=== PATIENT | female | born 1985 | race Caucasian/White ===

== ENCOUNTER 2021-03-30 08:38 | Outpatient (CLI) | payer BC ==
[2021-03-30 10:15] LABS: Hemoglobin 11.9 g/dL (12.0-15.5); Mean Corpuscular HGB CONC 31.9 g/dL (32.0-36.0); Mean Corpuscular Hemoglobin 28.5 pg (27.0-33.0); Mean Corpuscular Volume 89.4 fl (81.6-98.3); Mean Platelet Volume 9.5 fl (7.4-10.4); Platelet Count 228 10x3/uL (150-450); RBC Distribution Width 13.2 % (11.5-14.5); Red Blood Cell (RBC) Count 4.17 10x6/uL (3.90-5.03); White Blood Cell (WBC) Count 4.4 10x3/uL (3.5-10.5)
[2021-03-30 10:25] LABS: BHCG - Serum Negative (NEGATIVE); Pregs Control Background? CLEAR/WHITE (CLR/WHITE); Pregs Control Bar Appear? YES (CONTROL BAR)
[2021-03-30 23:16] LABS: SARS-CoV-2 PCR by NAA Not Detected (NotDetected)
== END 2021-03-30 08:39 | disposition home or self-care (01) ==
LOC: CSHLAB 08:38
PROVIDERS: ATTEND Obstetrics & Gynecology
DX: Z01.812 Encounter for preprocedural laboratory examination (principal); Z20.822 Contact with and (suspected) exposure to COVID-19; R10.2 Pelvic and perineal pain; G89.29 Other chronic pain; N94.10 Unspecified dyspareunia
CPT/HCPCS: 84703; 85027; U0003; U0005

== ENCOUNTER 2021-04-04 05:18 | Day surgery (SDC) | payer BC ==
[2021-04-02 15:06] VITALS: BMI 25.4
[2021-04-04] MEDS ORDERED: Gabapentin 300 MG CAP ONE (06:11)
[2021-04-04] MEDS ORDERED: Famotidine/PF 20 mg/2ml Vial ONE (06:12)
[2021-04-04] MEDS ORDERED: CeleCOXIB 100 MG CAP ONE (06:12)
[2021-04-04] MEDS ORDERED: Lidocaine 1% MPF 2 ML VIAL ONE (06:12)
[2021-04-04] MEDS ORDERED: Bupivacaine PF 0.5% 30 ML VIAL ONE (06:39)
[2021-04-04] MEDS ORDERED: EPINEPHrine 1 MG/ML AMP ONE (06:39)
[2021-04-04] MEDS ORDERED: Scopolamine 1.5 mg/72 hour Patch ONE (07:01)
[2021-04-04] MEDS ORDERED: Midazolam HCl 2 mg/2 ml Vial ONE ×2 (07:01→07:04)
[2021-04-04] MEDS ORDERED: PROPOFOL 20 ML ONE ×2 (07:03→08:29)
[2021-04-04] MEDS ORDERED: Fentanyl 250 MCG/5 ML VIAL ONE (07:03)
[2021-04-04] MEDS ORDERED: Glycopyrrolate 0.2 MG/ML 5 ML SYRINGE ONE (07:04)
[2021-04-04] MEDS ORDERED: Lidocaine 1% PF 5 ML VIAL ONE (07:04)
[2021-04-04] MEDS ORDERED: Ketorolac Tromethamine 30 MG/ML VIAL ONE (07:04)
[2021-04-04] MEDS ORDERED: Rocuronium Bromide 10 MG/ML (10ML VIAL) ONE (07:04)
[2021-04-04] MEDS ORDERED: Ondansetron PF 4 MG/2 ML Vial ONE ×2 (07:04→10:01)
[2021-04-04] MEDS ORDERED: Estradiol 0.1mg/24 Hour Patch (Weekly) TD SCH (09:15)
[2021-04-04] MEDS ORDERED: HYDROmorphone 0.5 MG/0.5 ML SYRINGE ONE (09:52)
[2021-04-04] MEDS ORDERED: Promethazine HCl 25 MG/ML VIAL ONE (10:02)
[2021-04-04] MEDS ORDERED: Estradiol 0.05mg/24 Hour Patch (Weekly) ONE (10:22)
== END 2021-04-04 12:10 | disposition home or self-care (01) ==
LOC: CSHSDC 05:18
PROVIDERS: ATTEND Obstetrics & Gynecology
PROC: 0UT74ZZ Resection of Bilateral Fallopian Tubes, Percutaneous Endoscopic Approach (ICD-10-PCS; principal; 2021-04-04)
PROC: 0UT94ZZ Resection of Uterus, Percutaneous Endoscopic Approach (ICD-10-PCS; principal; 2021-04-04)
PROC: 0UT24ZZ Resection of Bilateral Ovaries, Percutaneous Endoscopic Approach (ICD-10-PCS; principal; 2021-04-04)
DX: N72 Inflammatory disease of cervix uteri (principal); N87.9 Dysplasia of cervix uteri, unspecified; N83.01 Follicular cyst of right ovary; N83.12 Corpus luteum cyst of left ovary; K66.0 Peritoneal adhesions (postprocedural) (postinfection); N80.0 Endometriosis of uterus; G89.29 Other chronic pain; R10.2 Pelvic and perineal pain; N94.6 Dysmenorrhea, unspecified; N92.0 Excessive and frequent menstruation with regular cycle; F17.200 Nicotine dependence, unspecified, uncomplicated; Z79.899 Other long term (current) drug therapy; Z88.0 Allergy status to penicillin; Z88.5 Allergy status to narcotic agent; Z98.890 Other specified postprocedural states
CPT/HCPCS: 36415; 86850; 86900; 86901; 88307; J0171; J0690; J1170; J1885; J2250; J2405; J2550; J2704; J3010; S0020; S0028

== ENCOUNTER 2021-04-12 12:05 | Inpatient (IN) | payer BC ==
[2021-04-12] MEDS ORDERED: Ondansetron PF 4 MG/2 ML Vial ONE (13:01)
[2021-04-12] MEDS ORDERED: Ketorolac Tromethamine 30 MG/ML VIAL ONE (13:01)
[2021-04-12 13:14] LABS: Bilirubin Neg (Negative); Blood, Urine 25 (Negative); Clarity Slightly Cloudy (Clear); Glucose, Urine (Dipstick) Normal (Negative); Ketone, Urine 5 mg/dL (Negative); Leukocyte 100 (Negative); Nitrite Negative (Negative); Protein, Urine (Dipstick) 15 mg/dl (Neg-Trace); Specific Gravity, Urine 1.025 (1.002-1.036); Urobilinogen Normal mg/dL (Less than 2)
[2021-04-12 13:19] LABS: #Eosinphils 0.2 10x3/uL (0.0-0.5); #Monocytes 0.9 10x3/uL (0.0-1.1); #Neutrophils 7.2 10x3/uL (1.5-8.4); %Basophils 0.3 % (0.0-2.0); %Eosinophils 2.4 % (0.0-6.0); %Lymphocytes 8.5 % (18.0-47.0); %Monocytes 9.4 % (0.0-10.0); %Neutrophils 79.1 % (40.0-75.0); Hemoglobin 12.6 g/dL (12.0-15.5); Mean Corpuscular HGB CONC 32.6 g/dL (32.0-36.0); Mean Corpuscular Hemoglobin 28.1 pg (27.0-33.0); Mean Corpuscular Volume 86.2 fl (81.6-98.3); Mean Platelet Volume 9.1 fl (7.4-10.4); Platelet Count 249 10x3/uL (150-450); Red Blood Cell (RBC) Count 4.48 10x6/uL (3.90-5.03); White Blood Cell (WBC) Count 9.1 10x3/uL (3.5-10.5)
[2021-04-12] MEDS ORDERED: metroNIDAZOLE 500 MG/100 ML BAG ONE (13:33)
[2021-04-12] MEDS ORDERED: Morphine 4 MG/ML VIAL ONE ×2 (13:37→14:58)
[2021-04-12 13:38] LABS: ALT (SGPT) 14 U/L (8-55); AST (SGOT) 13 U/L (5-34); Albumin 4.4 g/dL (3.5-5.0); Alkaline Phosphatase 74 U/L (40-110); Anion Gap 13 mmol/L (10-20); BUN (Urea Nitrogen) 14 mg/dL (7.0-18.7); Bilirubin, Total 0.6 mg/dL (0.2-1.2); CK (CPK) 14 U/L (29-168); Calc. Creatinine Clearance 0 mL/min (70-130); Calcium 9.1 mg/dL (7.8-10.44); Carbon Dioxide 22 mmol/L (22-29); Chloride 104 mmol/L (98-107); Globulin 3.1 g/dL (2.4-3.5); Glucose 89 mg/dL (70-105); Potassium 3.7 mmol/L (3.5-5.1); Protein, Total 7.5 g/dL (6.0-8.3); Sodium 135 mmol/L (136-145)
[2021-04-12 13:39] LABS: Squamous Epithelial 0-3 HPF (0-3)
[2021-04-12 13:40] LABS: Bacteria/HPF Rare-Few HPF (None Seen)
[2021-04-12 14:12] LABS: SARS-CoV-2 NAA Rapid Test Not Detected (NotDetected)
[2021-04-12] MEDS ORDERED: Levofloxacin 500 mg/D5W 100 ml Premix Bag ONE (14:20)
[2021-04-12] MEDS ORDERED: Bisacodyl 5 MG TAB PO PRN (16:28)
[2021-04-12] MEDS ORDERED: Ondansetron ODT 4 MG TAB PO PRN (16:28)
[2021-04-12 16:36] VITALS: BMI 24.2
[2021-04-12] MEDS: Sodium Chloride 0.9% 1,000 ML IV SCH (17:02)
[2021-04-12] MEDS: Fentanyl 100 MCG/2 ML VIAL SLOW IVP PRN ×2 (17:06→19:57)
[2021-04-12] MEDS: Ondansetron PF 4 MG/2 ML Vial IVP PRN (17:08)
[2021-04-12] MEDS: Nicotine 21 MG PATCH TD SCH (17:09)
[2021-04-12] MEDS: traMADol HCl 50 MG TAB PO PRN (17:10)
[2021-04-12] MEDS: Famotidine 20 MG TAB PO SCH (19:59)
[2021-04-12] MEDS: metroNIDAZOLE 500 MG in Premix Bag 1 BAG IVPB SCH (21:48)
[2021-04-12] MEDS: Promethazine HCl 12.5 MG in Sodium Chloride 0.9% 50 ML IVPB PRN (23:42)
[2021-04-13] MEDS: Zolpidem Tartrate 5 MG TAB PO PRN ×2 (00:03→20:33)
[2021-04-13] MEDS: traMADol HCl 50 MG TAB PO PRN ×4 (00:24→20:39)
[2021-04-13] MEDS: Sodium Chloride 0.9% 1,000 ML IV SCH ×3 (02:15→15:21)
[2021-04-13 04:52] LABS: #Eosinphils 0.2 10x3/uL (0.0-0.5); #Monocytes 0.6 10x3/uL (0.0-1.1); #Neutrophils 3.2 10x3/uL (1.5-8.4); %Basophils 0.4 % (0.0-2.0); %Eosinophils 3.6 % (0.0-6.0); %Lymphocytes 18.6 % (18.0-47.0); %Monocytes 12.6 % (0.0-10.0); %Neutrophils 64.4 % (40.0-75.0); Mean Corpuscular HGB CONC 32.4 g/dL (32.0-36.0); Mean Corpuscular Hemoglobin 28.2 pg (27.0-33.0); Mean Corpuscular Volume 87.3 fl (81.6-98.3); Mean Platelet Volume 9.3 fl (7.4-10.4); Platelet Count 191 10x3/uL (150-450); RBC Distribution Width 12.8 % (11.5-14.5); Red Blood Cell (RBC) Count 3.54 10x6/uL (3.90-5.03); White Blood Cell (WBC) Count 4.9 10x3/uL (3.5-10.5)
[2021-04-13] MEDS: metroNIDAZOLE 500 MG in Premix Bag 1 BAG IVPB SCH ×3 (05:31→21:46)
[2021-04-13] MEDS: Fentanyl 100 MCG/2 ML VIAL SLOW IVP PRN ×3 (07:14→18:35)
[2021-04-13] MEDS: Promethazine HCl 12.5 MG in Sodium Chloride 0.9% 50 ML IVPB PRN (08:35)
[2021-04-13] MEDS: Famotidine 20 MG TAB PO SCH ×2 (08:36→20:33)
[2021-04-13] MEDS: Ondansetron PF 4 MG/2 ML Vial IVP PRN (14:08)
[2021-04-13] MEDS ORDERED: Estradiol 1 MG TAB PO SCH (17:00)
[2021-04-13] MEDS: Nicotine 21 MG PATCH TD SCH (17:33)
[2021-04-13] MEDS: Miconazole 100 mg Supp Box of 7 VAG SCH (20:27)
[2021-04-14] MEDS: traMADol HCl 50 MG TAB PO PRN ×4 (00:38→21:52)
[2021-04-14] MEDS: Zolpidem Tartrate 5 MG TAB PO PRN ×2 (00:38→21:54)
[2021-04-14] MEDS: Sodium Chloride 0.9% 1,000 ML IV SCH ×3 (00:39→17:33)
[2021-04-14] MEDS: metroNIDAZOLE 500 MG in Premix Bag 1 BAG IVPB SCH ×3 (05:57→16:10)
[2021-04-14] MEDS: Fentanyl 100 MCG/2 ML VIAL SLOW IVP PRN ×2 (06:13→12:13)
[2021-04-14] MEDS: Promethazine HCl 12.5 MG in Sodium Chloride 0.9% 50 ML IVPB PRN ×2 (06:19→15:01)
[2021-04-14] MEDS: Famotidine 20 MG TAB PO SCH ×2 (08:15→21:51)
[2021-04-14] MEDS: Estradiol 1 MG TAB PO SCH (08:15)
[2021-04-14] MEDS: Milk Of Magnesia 30 ML UDCUP PO SCH (08:25)
[2021-04-14] MEDS: Ondansetron PF 4 MG/2 ML Vial IVP PRN (12:14)
[2021-04-14] MEDS ORDERED: Lorazepam 2 MG/ML VIAL SLOW IVP PRN (13:07)
[2021-04-14 16:26] LABS: ALT (SGPT) 10 U/L (8-55); AST (SGOT) 9 U/L (5-34); Albumin 3.6 g/dL (3.5-5.0); Alkaline Phosphatase 54 U/L (40-110); Anion Gap 12 mmol/L (10-20); BUN (Urea Nitrogen) 8 mg/dL (7.0-18.7); Bilirubin, Total 0.2 mg/dL (0.2-1.2); Calc. Creatinine Clearance 96 mL/min (70-130); Calcium 8.3 mg/dL (7.8-10.44); Carbon Dioxide 22 mmol/L (22-29); Chloride 105 mmol/L (98-107); Globulin 2.6 g/dL (2.4-3.5); Glucose 110 mg/dL (70-105); Potassium 3.1 mmol/L (3.5-5.1); Protein, Total 6.2 g/dL (6.0-8.3); Sodium 136 mmol/L (136-145)
[2021-04-14] MEDS: Nicotine 21 MG PATCH TD SCH (17:33)
[2021-04-14] MEDS ORDERED: Metoclopramide HCl 10 MG/2 ML VIAL IVP SCH (17:34)
[2021-04-14] MEDS ORDERED: Potassium Chloride 20 MEQ TAB PO SCH (19:15)
[2021-04-14] MEDS: Miconazole 100 mg Supp Box of 7 VAG SCH (21:51)
[2021-04-14] MEDS: Metoclopramide HCl 10 MG/2 ML VIAL IVP SCH (21:51)
[2021-04-15] MEDS: Sodium Chloride 0.9% 1,000 ML IV SCH ×2 (01:26→08:53)
[2021-04-15] MEDS: Metoclopramide HCl 10 MG/2 ML VIAL IVP SCH (05:06)
[2021-04-15] MEDS: traMADol HCl 50 MG TAB PO PRN (05:09)
[2021-04-15] MEDS: Famotidine 20 MG TAB PO SCH (08:51)
[2021-04-15] MEDS: Estradiol 1 MG TAB PO SCH (08:52)
[2021-04-15] MEDS: Milk Of Magnesia 30 ML UDCUP PO SCH (08:53)
[2021-04-15] MEDS ORDERED: Fluconazole 100 MG TAB PO SCH (09:00)
[2021-04-15 09:22] VITALS: BP 112/61; TEMP 99.1
== END 2021-04-15 09:20 | disposition home or self-care (01) | DRG 863 ==
LOC: CSHERS 12:05 → CSHPED 12:06
PROVIDERS: ADMIT Obstetrics & Gynecology; ATTEND Obstetrics & Gynecology
DX: T81.40XA Infection following a procedure, unspecified, initial encounter (principal); B37.3 Candidiasis of vulva and vagina; Z20.822 Contact with and (suspected) exposure to COVID-19; E86.0 Dehydration; M79.18 Myalgia, other site; E87.6 Hypokalemia; Y83.8 Other surgical procedures as the cause of abnormal reaction of the patient, or of later complication, without mention of misadventure at the time of the procedure; F31.9 Bipolar disorder, unspecified; F41.9 Anxiety disorder, unspecified; Z98.890 Other specified postprocedural states; Z90.710 Acquired absence of both cervix and uterus; Z90.722 Acquired absence of ovaries, bilateral
CPT/HCPCS: 36415; 74177; 80053; 81003; 81015; 82550; 83605; 85025; 87040; 87086; 87804; 93005; 96365; 96375; 96376; J1885; J1956; J2270; J2405; J2550; J2765; J3010; J7050; Q0162; U0002

== ENCOUNTER 2021-05-25 13:12 | Observation (INO) | payer BC ==
[2021-05-25] MEDS ORDERED: Morphine 4 MG/ML VIAL ONE (14:23)
[2021-05-25] MEDS ORDERED: Ondansetron PF 4 MG/2 ML Vial ONE (14:23)
[2021-05-25] MEDS ORDERED: Ketorolac Tromethamine 30 MG/ML VIAL ONE ×2 (14:23→14:30)
[2021-05-25 14:40] LABS: #Monocytes 0.8 10x3/uL (0.0-1.1); #Neutrophils 11.4 10x3/uL (1.5-8.4); %Basophils 0.1 % (0.0-2.0); %Eosinophils 0.1 % (0.0-6.0); %Monocytes 5.7 % (0.0-10.0); %Neutrophils 84.3 % (40.0-75.0); Hemoglobin 13.4 g/dL (12.0-15.5); Mean Corpuscular HGB CONC 32.6 g/dL (32.0-36.0); Mean Corpuscular Hemoglobin 27.9 pg (27.0-33.0); Mean Corpuscular Volume 85.6 fl (81.6-98.3); Mean Platelet Volume 9.3 fl (7.4-10.4); Platelet Count 309 10x3/uL (150-450); RBC Distribution Width 13.4 % (11.5-14.5); White Blood Cell (WBC) Count 13.5 10x3/uL (3.5-10.5)
[2021-05-25 14:54] LABS: ALT (SGPT) 14 U/L (8-55); AST (SGOT) 12 U/L (5-34); Albumin 4.8 g/dL (3.5-5.0); Alkaline Phosphatase 74 U/L (40-110); Anion Gap 13 mmol/L (10-20); BUN (Urea Nitrogen) 12 mg/dL (7.0-18.7); Bilirubin, Total 0.2 mg/dL (0.2-1.2); Calc. Creatinine Clearance 0 mL/min (70-130); Calcium 9.5 mg/dL (7.8-10.44); Carbon Dioxide 23 mmol/L (22-29); Chloride 106 mmol/L (98-107); Globulin 3.2 g/dL (2.4-3.5); Glucose 107 mg/dL (70-105); Lipase 9 U/L (8-78); Potassium 3.5 mmol/L (3.5-5.1); Sodium 138 mmol/L (136-145)
[2021-05-25 14:57] LABS: SARS-CoV-2 NAA Rapid Test Not Detected (NotDetected)
[2021-05-25 15:57] LABS: Bilirubin Neg (Negative); Blood, Urine Negative (Negative); Clarity Clear (Clear); Glucose, Urine (Dipstick) Normal (Negative); Ketone, Urine Negative (Negative); Leukocyte Negative (Negative); Nitrite Negative (Negative); Protein, Urine (Dipstick) Negative (Neg-Trace); Specific Gravity, Urine 1.005 (1.002-1.036); Urobilinogen Normal mg/dL (Less than 2); pH, Urine 6.5 (5.0-9.0)
[2021-05-25] MEDS ORDERED: Cefepime 2 GM VIAL ONE (17:30)
[2021-05-25] MEDS ORDERED: Acetaminophen 500 MG TAB ONE (17:46)
[2021-05-25] MEDS ORDERED: Promethazine HCl 25 MG/ML VIAL ONE (17:47)
[2021-05-25 18:17] LABS: Amphetamine Not Detected (NotDetected); Barbiturates Screen Not Detected (NotDetected); Benzodiazepine Screen Not Detected (NotDetected); Cocaine Metabolite Screen Not Detected (NotDetected); Methadone Not Detected (NotDetected); Methamphetamine Not Detected (NotDetected); Opiate Screen Detected (NotDetected); Oxycodone Screen Not Detected (NotDetected); Phencyclidine (PCP) Not Detected (NotDetected); THC/Cannabinoid Screen Detected (NotDetected); Tricyclic Screen Not Detected (NotDetected)
[2021-05-25] MEDS ORDERED: Nicotine 14 MG PATCH TD PRN (19:10)
[2021-05-25] MEDS ORDERED: Acetaminophen 325 MG TAB PO PRN (19:10)
[2021-05-25] MEDS ORDERED: Loperamide HCl 2 MG CAP PO PRN ×2 (19:10)
[2021-05-25] MEDS ORDERED: traMADol HCl 50 MG TAB PO PRN ×2 (19:10)
[2021-05-25] MEDS ORDERED: Ondansetron ODT 4 MG TAB PO PRN (19:10)
[2021-05-25] MEDS ORDERED: Methocarbamol 500 MG TAB PO PRN (19:14)
[2021-05-25 22:26] VITALS: BMI 23.8
[2021-05-25] MEDS: Famotidine 20 MG TAB PO SCH (22:47)
[2021-05-26] MEDS ORDERED: Vancomycin HCl 1 GM in Sodium Chloride 0.9% 250 ML 250 ML IVPB SCH (04:00)
[2021-05-26 04:19] LABS: #Monocytes 0.6 10x3/uL (0.0-1.1); #Neutrophils 7.8 10x3/uL (1.5-8.4); %Basophils 0.3 % (0.0-2.0); %Eosinophils 0.3 % (0.0-6.0); %Lymphocytes 14.9 % (18.0-47.0); %Neutrophils 78.2 % (40.0-75.0); Hemoglobin 11.5 g/dL (12.0-15.5); Mean Corpuscular HGB CONC 31.5 g/dL (32.0-36.0); Mean Corpuscular Hemoglobin 27.6 pg (27.0-33.0); Mean Corpuscular Volume 87.5 fl (81.6-98.3); Mean Platelet Volume 9.7 fl (7.4-10.4); Platelet Count 227 10x3/uL (150-450); RBC Distribution Width 13.8 % (11.5-14.5); Red Blood Cell (RBC) Count 4.17 10x6/uL (3.90-5.03)
[2021-05-26 04:33] LABS: Anion Gap 13 mmol/L (10-20); BUN (Urea Nitrogen) 15 mg/dL (7.0-18.7); Calc. Creatinine Clearance 91 mL/min (70-130); Calcium 8.3 mg/dL (7.8-10.44); Carbon Dioxide 20 mmol/L (22-29); Chloride 112 mmol/L (98-107); Glucose 92 mg/dL (70-105); Sodium 141 mmol/L (136-145)
[2021-05-26] MEDS ORDERED: Cefepime 1 GM in Sodium Chloride 0.9% 100 ML IVPB SCH (06:00)
[2021-05-26] MEDS: Promethazine HCl 12.5 MG in Sodium Chloride 0.9% 50 ML IVPB SCH ×2 (07:43→07:58)
[2021-05-26] MEDS: Famotidine 20 MG TAB PO SCH (09:59)
[2021-05-26 12:48] VITALS: BP 104/55; TEMP 97.8
[2021-05-28 05:01] LABS: Chlamydia by PCR Not Detected (NotDetected); GC by PCR Not Detected (NotDetected)
== END 2021-05-26 13:03 | disposition home or self-care (01) ==
LOC: SUATTDRO 13:12 → CSHERS 13:12 → CSHTELE 21:29
PROVIDERS: ADMIT Family Medicine; ATTEND Internal Medicine
DX: R10.84 Generalized abdominal pain (principal); M50.90 Cervical disc disorder, unspecified, unspecified cervical region; D72.829 Elevated white blood cell count, unspecified; R20.2 Paresthesia of skin; F17.210 Nicotine dependence, cigarettes, uncomplicated; Z79.899 Other long term (current) drug therapy; R11.2 Nausea with vomiting, unspecified; N76.0 Acute vaginitis; H53.9 Unspecified visual disturbance; Z20.822 Contact with and (suspected) exposure to COVID-19
CPT/HCPCS: 0240U; 36415; 70450; 70551; 71045; 72125; 72156; 74177; 80048; 80053; 80306; 81003; 83605; 83690; 85025; 86140; 87040; 87480; 87491; 87510; 87591; 87660; 96365; 96366; 96367; 96375; G0378; J0692; J1885; J2270; J2405; J2550; J3370; J3490; J7050; Q0162

== ENCOUNTER 2023-04-19 10:32 | Emergency (ER) | payer BC ==
[2023-04-19] MEDS ORDERED: Ketorolac Tromethamine 30 MG/ML VIAL ONE (11:49)
[2023-04-19] MEDS ORDERED: Metoclopramide HCl 10 MG/2 ML VIAL ONE (11:49)
[2023-04-19 11:53] LABS: #Monocytes 0.2 10x3/uL (0.0-1.1); #Neutrophils 3.6 10x3/uL (1.5-8.4); %Basophils 0.4 % (0.0-2.0); %Eosinophils 0.4 % (0.0-6.0); %Lymphocytes 24.8 % (18.0-47.0); %Monocytes 4.7 % (0.0-10.0); %Neutrophils 69.5 % (40.0-75.0); Hematocrit 44.9 % (34.9-44.5); Hemoglobin 15.4 g/dL (12.0-15.5); Mean Corpuscular HGB CONC 34.3 g/dL (32.0-36.0); Mean Corpuscular Hemoglobin 30.6 pg (27.0-33.0); Mean Corpuscular Volume 89.1 fl (81.6-98.3); Mean Platelet Volume 9.6 fl (7.4-10.4); Platelet Count 204 10x3/uL (150-450); RBC Distribution Width 12.5 % (11.5-14.5); Red Blood Cell (RBC) Count 5.04 10x6/uL (3.90-5.03); White Blood Cell (WBC) Count 5.1 10x3/uL (3.5-10.5)
[2023-04-19 12:07] LABS: ALT (SGPT) 11 U/L (8-55); AST (SGOT) 18 U/L (5-34); Albumin 4.5 g/dL (3.5-5.0); Alkaline Phosphatase 68 U/L (40-110); Anion Gap 17 mmol/L (10-20); BUN (Urea Nitrogen) 13 mg/dL (7.0-18.7); Bilirubin, Total 0.3 mg/dL (0.2-1.2); CK (CPK) 31 U/L (29-168); Calc. Creatinine Clearance 0 mL/min (70-130); Calcium 9.4 mg/dL (7.8-10.44); Carbon Dioxide 20 mmol/L (22-29); Chloride 105 mmol/L (98-107); Estimated GFR 88; Globulin 2.8 g/dL (2.4-3.5); Glucose 135 mg/dL (70-105); Potassium 3.9 mmol/L (3.5-5.1); Protein, Total 7.3 g/dL (6.0-8.3); Sodium 138 mmol/L (136-145)
[2023-04-19] MEDS ORDERED: cefTRIAXone (ROCEPHIN) 1 GM VIAL ONE (13:41)
== END 2023-04-19 15:05 | disposition home or self-care (01) ==
LOC: CSHERS 10:32
DX: L03.113 Cellulitis of right upper limb (principal); I10 Essential (primary) hypertension; F17.210 Nicotine dependence, cigarettes, uncomplicated
CPT/HCPCS: 36415; 80053; 82550; 83605; 85025; 86140; 87040; 96374; 96375; J0696; J1885; J2765

== ENCOUNTER 2025-01-19 07:54 | Emergency (ER) | payer BC ==
[2025-01-19] MEDS ORDERED: Metoclopramide HCl 10 MG (2 mL) VIAL ONE (08:51)
[2025-01-19] MEDS ORDERED: Ketorolac Tromethamine 30 MG (1 mL) VIAL ONE (08:51)
== END 2025-01-19 10:26 | disposition home or self-care (01) ==
LOC: CSHERS 07:54
DX: G43.909 Migraine, unspecified, not intractable, without status migrainosus (principal); S80.12XD Contusion of left lower leg, subsequent encounter; I10 Essential (primary) hypertension; F17.210 Nicotine dependence, cigarettes, uncomplicated; Y04.0XXD Assault by unarmed brawl or fight, subsequent encounter
CPT/HCPCS: 96365; 96375; J1885; J2765; J2919

== ENCOUNTER 2025-02-04 19:01 | Emergency (ER) | payer BC ==
[2025-02-04] MEDS ORDERED: Ketorolac Tromethamine 30 MG (1 mL) VIAL ONE (21:19)
== END 2025-02-05 01:44 | disposition home or self-care (01) ==
LOC: CSHERS 19:01
DX: L03.116 Cellulitis of left lower limb (principal); I10 Essential (primary) hypertension; F17.210 Nicotine dependence, cigarettes, uncomplicated; Y04.2XXA Assault by strike against or bumped into by another person, initial encounter
CPT/HCPCS: 96372; J1885